=== PATIENT | female | born 1970 | race Caucasian/White ===

== ENCOUNTER → 2016-09-14 | Outpatient (CLI) | payer OTHER ==
[~2016-09-14] MED LIST: AMITRYPTYLINE PO; BACTRIM DS TABL1 TA1 PO; CHOLESTEROL MED; DICLOFENAC; FLEXERIL; HUMALOG100 U/M1; LANTUS100 U/M1; LANTUS100 U/ML INJ; LISINOPRIL5 MG PO; PRAVASTATIN SOD10 MG PO; PROZAC40 MG PO; SYNTHROID; ZOFRAN PO
--- NOTE | ~2016-09-14 | MY6 ---
[facility] A Service of [facility] / [facility] RADIOLOGY TEXT RESULTS PATIENT: SHASHANK BEASLEY LOCATION: [facility] : 71 UNIT #: [id number] AGE: [address]: MARCOS RICHARD SEX: F ORDER DR: [id number] [facility] [address] [place], [place] [address] [id number] O MR#: [id number] Acc #: [id number] NAME: SHASHANK BEASLEY : 1970 SEX: F STUDY DATE/TIME: 09/14/2016 8:35 UNIT: [facility] ROOM: STUDY DESCRIPTION: MY Mammogram Dx Dig Paulo Attending Physician: Marcos Richard Aprn Referring Physician: Marcos Richard Aprn Ordering Physician: Physician Non-Staff Primary Care Physician: Albaro Holden MEDICAL IMAGING REPORT This report is preliminary unless electronic signature is present EXAM Bilateral digital diagnostic mammogram with CAD and targeted right breast ultrasound, 09/14/2016. INDICATION 45-year-old female complaining of breast tenderness in the outer aspect of the right breast. Possible nodule or mass upper outer quadrant right breast. Symptoms for approximately a month. The patient initially complained of tenderness on the left but later denied any tenderness or complaint in the left breast upon further questioning. No prior surgeries. No personal history of breast cancer. Family history positive in a grandmother in her 70s. TECHNIQUE CC, MLO, and true lateral views of the breast were obtained and reviewed with an FDA-approved CAD device. Targeted ultrasound of the area of patient pain symptoms and palpable concern on the right was also performed. COMPARISON Mammogram, 01/20/2012. FINDINGS MAMMOGRAPHIC FINDINGS: Breast parenchyma is composed of heterogeneously dense breast tissue. The pattern is unchanged. There is fibroglandular predominance in the upper outer aspects of both breasts, unchanged. There is no new dominant nodule, mass, or suspicious cluster of microcalcifications. Marker overlies the area of palpable concern in the upper outer hemisphere right breast and there is no distinct mammographic abnormality deep to the marker. No adenopathy. Following the mammographic portion of the study, focused ultrasound of the right breast was thereafter performed. ULTRASOUND FINDINGS: The patient was initially scanned independently the [facility] A Service of [facility] / [facility] RADIOLOGY TEXT RESULTS PATIENT: SHASHANK BEASLEY LOCATION: [facility] : 71 UNIT #: [id number] AGE: [address]: MARCOS RICHARD SEX: F ORDER DR: by the technologist and then rescanned in my presence. Right breast: Limited physical exam (with patient consent) was performed bilaterally. There is dense breast tissue in the upper outer hemisphere right breast and similarly in the upper outer hemisphere left breast on exam. This may be slightly more prominent on the right than the left. Focused ultrasound of the upper outer quadrant right breast was performed and demonstrates benign-appearing dense breast tissue in the 9 o'clock through 12 o'clock positions. Imaging of the 6 o'clock through 12 o'clock positions was also performed given the patient's complaint of generalized pain laterally in the right breast. No additional abnormality was identified. There is no distinct cystic or solid mass or suspicious shadowing abnormality. Imaging findings between mammography and ultrasound are concordant. Absent new or worsening symptoms in either breast, the patient should return for a repeat screening mammogram in 1 year. Findings recommendations were discussed with the patient. She voiced understanding and agreement. IMPRESSION Negative bilateral diagnostic mammogram and targeted ultrasound in the lateral hemisphere right breast. Clinical considerations to determine additional imaging at this point. Return to an annual screening regimen is recommended. See discussion above. Patients over the age of 40 are entered into a reminder system with target due date for the next mammogram. A result letter will also be sent to the patient. BIRADS: 1 Negative Dictated by... Shiva Booker M.D. THIS IS AN ELECTRONICALLY VERIFIED REPORT Shiva Booker M.D. at 09/14/2016 4:51 PM BARBARA/marline TD: 09/14/2016 14:04 JOB #: [id number] MEDICAL IMAGING REPORT COPY
--- NOTE | ~2016-09-14 | US24 ---
[facility] A Service of [facility] RADIOLOGY TEXT RESULTS PATIENT: SHASHANK BEASLEY LOCATION: [facility] : 72 UNIT #: [id number] AGE: [address]: MARCOS RICHARD SEX: F ORDER DR: [id number] [place] [id number] [place], [place] [address] [id number] O MR#: [id number] Acc #: [id number] NAME: SHASHANK BEASLEY : 1970 SEX: F STUDY DATE/TIME: 09/14/2016 9:41 UNIT: [facility] ROOM: STUDY DESCRIPTION: US Breast Unilateral Attending Physician: Marcos Richard Aprn Referring Physician: Marcos Richard Aprn Ordering Physician: Staff Doctor Not On Primary Care Physician: Albaro Holden MEDICAL IMAGING REPORT This report is preliminary unless electronic signature is present EXAM Targeted ultrasound lateral hemisphere, right breast. DATE OF EXAM 09/14/2016 INDICATIONS Correlation with the patient's area of pain symptoms and tenderness. Correlation with diagnostic mammography same date. TECHNIQUE Targeted ultrasound of the lateral hemisphere right breast was performed from the 6 o'clock through the 12 o'clock positions with attention to the upper/outer quadrant in the area of patient's palpable concern. COMPARISON Correlation is made with mammography, 09/14/2016. No relevant comparisons. FINDINGS RIGHT BREAST: The patient was scanned initially independently by the technologist and then rescanned in my presence. Imaging of the right breast from 6-12 o'clock demonstrates no cystic or solid mass or persistent shadowing abnormality. The patient complains of an equivocal palpable abnormality in the upper/outer quadrant right breast. In this area, there is dense breast tissue corresponding to similar findings mammographically. Imaging of the remainder of the lateral hemisphere right breast was negative. Imaging findings are concordant with mammography. Absent new or worsening symptoms in either breast, return to an annual screening regimen is recommended. Please see the separately dictated diagnostic mammogram report for further details. [facility] A Service [facility] RADIOLOGY TEXT RESULTS PATIENT: SHASHANK BEASLEY LOCATION: [facility] : 72 UNIT #: [id number] AGE: [address]: MARCOS RICHARD SEX: F ORDER DR: VIVIENNE Ultrasound evaluation of the lateral hemisphere right breast is negative. Benign breast tissue in the upper outer quadrant corresponding to similar findings mammographically. Return to annual screening recommended. Patients over the age of 40 are entered into a reminder system with target due date for the next mammogram. A result letter will also be sent to the patient. BIRADS: 1 Negative. Dictated by... Shiva Booker M.D. THIS IS AN ELECTRONICALLY VERIFIED REPORT Shiva Booker M.D. at 09/14/2016 4:52 PM BARBARA/zaid TD: 09/14/2016 15:51 JOB #: [id number] MEDICAL IMAGING REPORT COPY
== END | disposition home or self-care (01) ==
LOC: CMAM 08:03
DX: N64.4 Mastodynia (principal)
CPT/HCPCS: 76641; G0204